=== PATIENT | male | born 1955 | race Caucasian/White ===

== ENCOUNTER 2019-11-08 20:22 | Inpatient (IN) | payer OTHER, SELFPAY ==
[~2019-11-08] VITALS: Ht 167.6 cm; Wt 104.8 kg
[2019-11-08] MEDS: NACL 0.9% 1,000 ML IV SCH (00:50)
[2019-11-08 20:32] VITALS: BP 132/82
--- NOTE | 2019-11-08 21:03 | NUR ---
BIBA TO ER BED 2
--- NOTE | 2019-11-08 21:05 | NUR ---
ERMD AT BEDSIDE.
--- NOTE | 2019-11-08 21:10 | NUR ---
PT BIBA FROM [facility] FOR C/O FEVER OF 102.9 AT FACILITY. PT COVID POSITIVE PER REPORT FROM EMS. COVID PRECAUTIONS IN PLACE. PT RESPIRATIONS ARE EVEN AND UNLABORED. PT NOTED WITH NON-PRODUCTIVE COUGH. LUNG SOUNDS CLEAR BILAT A/P. PT SKIN IS WARM AND DRY TO TOUCH. PT DENIES PAIN. PT BULGARIAN SPEAKING AND ABLE TO RESPONDS TO YES OR NO QUESTIONS. PT ON CATTLE TESTER. VSS. BED LOCKED AND IN LOWEST POSITION. ALLERGIES: SANCHEZ FLAVORED [place] MEDHX: HTN, DM TYPE II, HYPERLIPIDEMIA, CVA WITH R SIDED WEAKNESS.
--- NOTE | 2019-11-08 21:15 | NUR ---
IV PLACED IN L FOREARM 20 G. BLOOD CULTURES AND LABS COLLECTED. GIVEN TO [employer].
--- NOTE | 2019-11-08 21:18 | NUR ---
RT AT BEDSIDE COLLECTING ABG.
--- NOTE | 2019-11-08 21:25 | NUR ---
ACCUCHDEEPIKA DYE. SUNIL @ 202. ERMD MADE AWARE.
--- NOTE | 2019-11-08 21:30 | NUR ---
UA COLLECTED VIA STRAIGHT CATH. UA SENT TO LAB.
--- NOTE | 2019-11-08 21:40 | NUR ---
EKG PERFORMED AT BEDSIDE.
[2019-11-08 21:59] LABS: BASOPHILS % (AUTO) 0.1 % (0.0-2.0); HEMATOCRIT 46.3 % (36-52); HEMOGLOBIN 15.4 g/dL (12.0-18.0); LYMPHOCYTES # (AUTO) 0.5 K/uL (2.0-11.5); LYMPHOCYTES % (AUTO) 10.9 % (20.5-51.1); MEAN CORPUSCULAR HEMOGLOBIN 29 pg (27-31); MEAN CORPUSCULAR HGB CONC 33 g/dL (33-37); MEAN CORPUSCULAR VOLUME 87.3 fL (80-94); MONOCYTES # (AUTO) 0.3 K/uL (0.8-1.0); MONOCYTES % (AUTO) 6.3 % (1.7-9.3); NEUTROPHILS # (AUTO) 3.9 K/uL (1.8-7.7); NEUTROPHILS % (AUTO) 82.7 % (42.2-75.2); PLATELET COUNT (AUTO) 100 K/uL (140-450); RED CELL DISTRIBUTION WIDTH 14.3 % (11.6-13.7); WHITE BLOOD COUNT (AUTO) 4.7 K/uL (4.8-10.8)
[2019-11-08 22:10] LABS: APPEARANCE,URINE CLEAR (CLEAR); BILIRUBIN,URINE NEGATIVE (NEGATIVE); BLOOD, URINE 1+ (NEGATIVE); COLOR,URINE YELLOW (YELLOW); LEUKOCYTE ESTERASE ,URINE NEGATIVE (NEGATIVE); NITRITE, URINE NEGATIVE (NEGATIVE); UGLUCOSE NEGATIVE (NEGATIVE)
[2019-11-08 22:15] LABS: ALBUMIN 3.1 g/dL (3.4-5.0); ANION GAP 13.7 (8-16); CARBON DIOXIDE 27.7 mmol/L (21-32); CREATININE 1.1 mg/dL (0.6-1.3); POTASSIUM 3.4 mmol/L (3.5-5.1); TOTAL BILIRUBIN 0.4 mg/dL (0.0-1.0)
[2019-11-08 22:23] LABS: RBC,URINE 11-20 (MOD) /HPF (0-5); WBC,URINE 0-5 /HPF (0-5)
[2019-11-08 22:28] LABS: LACTATE DEHYDROGENASE 295 U/L (85-227)
[2019-11-08 22:32] LABS: C-REACTIVE PROTEIN QUANT 16.8 mg/dL (0.0-0.9)
[2019-11-08] MEDS ORDERED: HEPARIN PER PHARMACY MC PRN (22:40)
[2019-11-08] MEDS ORDERED: AZITHROMYCIN 500 MG in DEXTROSE 5% 250 ML IV ONE (22:40)
[2019-11-08] MEDS ORDERED: hePARIN / DEXT 5% PREMIX 250 ML IV ONE (22:40)
[2019-11-08] MEDS ORDERED: AZITHROMYCIN 500 MG INJ VIAL IV ONE (22:59)
[2019-11-08] MEDS ORDERED: cefTRIAXone 1,000 MG VIAL ONE (23:00)
[2019-11-08 23:03] LABS: PROTHROMBIN TIME 10.4 secs (10.8-13.4)
[2019-11-08 23:14] LABS: FIBRINOGEN 334 mg/dL (200-400)
[2019-11-08] MEDS ORDERED: hePARIN / DEXT 5% PREMIX 250 ML IV SCH (23:20)
[2019-11-08] MEDS ORDERED: LORazepam 2 MG/ML VIAL IM/IVP PRN (23:25)
[2019-11-08] MEDS ORDERED: HYDROcodone/APAP 5/325 MG 1 TAB TAB PO PRN (23:25)
[2019-11-08] MEDS ORDERED: DOCUSATE SODIUM 100 MG GELCAP PO PRN (23:25)
[2019-11-08] MEDS ORDERED: ZOLPIDEM 5 MG TAB PO PRN (23:25)
[2019-11-08] MEDS ORDERED: ONDANSETRON 4 MG/2 ML VIAL IM/IVP PRN (23:25)
[2019-11-08] MEDS ORDERED: MORPHINE SULFATE 2 MG/ML SYR IVP PRN (23:25)
[2019-11-08] MEDS ORDERED: ACETAMINOPHEN 325 MG TAB PO PRN (23:25)
--- NOTE | 2019-11-08 23:29 | NUR ---
PT TEMP 98.7 ORAL. PT CONTINUES ON CARDIAC MONTIOR. PT REQUESTED A BLANKET. BLANKED PROVIDED FOR COMFORT MEASURES. PT DENIES PAIN AT THIS TIME. BED LOCKED AND IN LOWEST POSITION.
[2019-11-08] MEDS ORDERED: ALBUTEROL HFA MDI 90 MCG/ACTUATION 8 GM INH PRN (23:30)
[2019-11-08] MEDS ORDERED: DEXAMETHASONE 4 MG/ML VIAL PO SCH (23:30)
[2019-11-08 23:57] LABS: BARBITURATE, URINE NEGATIVE ng/ml (NEG <=200); BENZODIAZEPINE, URINE NEGATIVE ng/mL (NEG <=200); CANNABINOID, URINE NEGATIVE ng/mL (NEG <=50); COCAINE, URINE NEGATIVE ng/mL (NEG <=300); OPIATE, URINE NEGATIVE ng/mL (NEG <=2000); PHENCYCLIDINE SCREEN,URINE NEGATIVE ng/mL (NEG <=25)
[2019-11-08 23:58] LABS: CHOL/HDL RATIO 4.1 (1-4.5); FREE T4 (FREE THYROXINE) 1.2 ng/dL (0.76-1.46); MAGNESIUM 1.4 mg/dL (1.8-2.4); PHOSPHORUS 2.5 mg/dL (2.5-4.9); THYROID STIMULATING HORMONE 0.71 uIU/mL (0.34-3.74)
--- NOTE | 2019-11-09 | NUR ---
IV removed, catheter intact and site benign. Applied folded 4x4 gauze and tape to stop bleeding.
--- NOTE | 2019-11-09 | NUR ---
PT HAD 24G IN R HAND PRIOR TO ARRIVAL AND PLACED BY FACILTY. CHECK IF IV WAS PATENT. IV SITE NOT PATENT.
--- NOTE | 2019-11-09 00:05 | NUR ---
AZITHROMYCIN 500MG IN D5% 250 ML @ 250ML/HR. IN R HAND.
--- NOTE | 2019-11-09 00:05 | NUR ---
NEW IV PLACED IN R HAND 22G. IV SITE PATENT. BLOOD RETURN NOTED.
--- NOTE | 2019-11-09 00:26 | NUR ---
PT RESTING IN BED EYES CLOSED. PT ABLE TO RESPOND TO VERBAL STIMULI. PT BED LOCKED AND IN LOWEST POSTION. PT REMAINS ON FORK LIFT MECHANIC. PT DENIES PAIN AT THIS TIME. BED LOCKED AND IN LOWEST POSITION. PT VSS AT THIS TIME. SIDERAIL UP X 1.
--- NOTE | 2019-11-09 01:00 | NUR ---
NS 0.9% 1L RUNNING @ 100ML/HR IN R HAND. PT RESTING IN BED EYES OPEN. PT RESPONSIVE TO VERBAL STIMULI. PT NON VERBAL BUT ABLE TO RESPOND TO YES AND NO QUESTIONS. PT CONTINUES ON AUTO DEALER. PT VSS. BED LOCKED AND IN LOWEST POSTION.
--- NOTE | 2019-11-09 02:00 | NUR ---
PT SKIN REMAINS CLEAN AND DRY TO PERNIEAL CARE NEEDED AT THIS TIME. PT ABLE TO REPOSION SELF IN BED. PILLOWS GIVEN FOR COMFORT. PT REMAINS ON DATA OPERATIONS DIRECTOR. VSS. AFEBILE.
--- NOTE | 2019-11-09 02:15 | NUR ---
Patient will be admitted to care of . Admited to TELE. Will go to room 119B. Belongings list completed. Report to TAY BEAUCHAMP.
--- NOTE | 2019-11-09 02:15 | NUR ---
ADMITTED 64 MALE FROM [facility]. PATIENT IS NON VERBAL. ANSWERS BY NODDING TO YES/NO QUESTION. ON 5L O2 VIA NC SATURATION OF 95%. IV SITE AT LFA 20 G, AND RH 22G, INTACT AND PATENT. E.R. NURSE VERITO, INFUSED THE HEPARIN DRIP AT 9.7 ML/HR. TO LFA IV SITE AND NS AT 100CC/HR TO RH IV SITE, NO A/R NOTED, PATIENT TOLERATED WELL. MRSA AND COVID SWAB DONE, V/S TAKEN. DROPLET ISOLATION IN PLACE. FALL RISK PROTOCOL IN PLACE. TELE MONITOR ATTACHED. FLACC-0. CALL LIGHT WITHIN REACH. WILL CONTINUE TO MONITOR.
[2019-11-09] MEDS ORDERED: FLUO10CA21 PO (03:17)
[2019-11-09] MEDS ORDERED: METF500T PO (03:17)
[2019-11-09] MEDS ORDERED: METO25TA PO (03:17)
[2019-11-09] MEDS ORDERED: GABA100C PO (03:17)
[2019-11-09] MEDS ORDERED: [UNRECOGNIZED DRUG - CODE] PO (03:17)
[2019-11-09] MEDS ORDERED: DOCU-299 PO (03:17)
[2019-11-09] MEDS ORDERED: ATOR20TA40 PO (03:17)
[2019-11-09] MEDS ORDERED: CLOP75TA26 PO (03:17)
[2019-11-09] MEDS ORDERED: MAG SULF 2000 MG/WATER PREMIX 50 ML IV SCH (03:30)
[2019-11-09] MEDS ORDERED: POTASSIUM CHLORIDE 10 MEQ TABER PO SCH ×2 (03:30→10:30)
[2019-11-09 04:00] VITALS: BP 105/65
[2019-11-09] MEDS ORDERED: [UNRECOGNIZED DRUG - CODE] PO (04:23)
[2019-11-09] MEDS ORDERED: POTA20TE92 PO (04:28)
[2019-11-09] MEDS ORDERED: MULT-2253 PO (04:31)
--- NOTE | 2019-11-09 06:46 | NUR ---
MAGNESIUM IV GIVEN ORDERED ONCE FOR LOW MAGNESIUM. NO A/R NOTED, TOLERATED WELL.
--- NOTE | 2019-11-09 06:57 | NUR ---
PATIENT HAS BEEN SCREENED AND CATEGORIZED HIGH NUTRITION RISK. PATIENT WILL BE SEEN WITHIN 1-2 DAYS OF ADMISSION. 11/09/19 11/10/[address]
--- NOTE | 2019-11-09 07:00 | NUR ---
RECEIVED REPORT FROM CONTRACT ADMINISTRATION COORDINATOR NURSE. PATIENT IS CURRENTLY SLEEPING IN BED WITH NO SIGNS OF DISTRESS AT THIS TIME. RESPIRATIONS ARE EVEN AND UNLABORED ON 5L NASAL CANNULA WITH NO DIFFICULTIES BREATHING AND O2 SATURATIONS ARE CURRENTLY AT 92%. SKIN IS INTACT WITH IV PATENT ASYMPTOMATIC AND INFUSING PER ORDERS. BED IS IN LOW SEMI-FOWLERS POSITION WITH CALL LIGHT WITHIN REACH AND SAFETY MEASURES IN PLACE. WILL CONTINUE TO MONITOR PLAN OF CARE.
[2019-11-09 07:05] LABS: BASOPHILS % (AUTO) 0.9 % (0.0-2.0); EOSINOPHILS % (AUTO) 0.1 % (0.0-4.0); HEMATOCRIT 40.1 % (36-52); HEMOGLOBIN 13.5 g/dL (12.0-18.0); LYMPHOCYTES # (AUTO) 0.4 K/uL (2.0-11.5); LYMPHOCYTES % (AUTO) 11.3 % (20.5-51.1); MEAN CORPUSCULAR HEMOGLOBIN 29 pg (27-31); MEAN CORPUSCULAR HGB CONC 34 g/dL (33-37); MEAN CORPUSCULAR VOLUME 86.4 fL (80-94); MONOCYTES # (AUTO) 0.3 K/uL (0.8-1.0); MONOCYTES % (AUTO) 7.3 % (1.7-9.3); NEUTROPHILS # (AUTO) 3.1 K/uL (1.8-7.7); NEUTROPHILS % (AUTO) 80.4 % (42.2-75.2); PLATELET COUNT (AUTO) 94 K/uL (140-450); RED BLOOD CELL COUNT(AUTO) 4.64 MIL/uL (4.20-6.10); RED CELL DISTRIBUTION WIDTH 14.6 % (11.6-13.7); WHITE BLOOD COUNT (AUTO) 3.9 K/uL (4.8-10.8)
[2019-11-09 07:29] LABS: ALBUMIN 2.6 g/dL (3.4-5.0); ANION GAP 15.2 (8-16); CARBON DIOXIDE 23.9 mmol/L (21-32); CREATININE 1.3 mg/dL (0.6-1.3); MAGNESIUM 1.4 mg/dL (1.8-2.4); PHOSPHORUS 2.7 mg/dL (2.5-4.9); POTASSIUM 3.1 mmol/L (3.5-5.1); TOTAL BILIRUBIN 0.3 mg/dL (0.0-1.0)
--- NOTE | 2019-11-09 07:40 | NUR ---
PATIENT IS IN STABLE CONDITION, AFEBRILE THE WHOLE SHIFT, NO DISTRESS NOTED. ENDORSED TO AM SHIFT RN FOR CONTINUITY OF CARE.
[2019-11-09 08:00] VITALS: BP 103/70
[2019-11-09] MEDS ORDERED: ENOXAPARIN 40 MG/0.4 ML SYR SUBQ SCH (09:00)
[2019-11-09] MEDS ORDERED: CLOPIDOGREL 75 MG TAB PO SCH (09:00)
[2019-11-09] MEDS ORDERED: NON-FORMULARY ITEM (Lisinopril/Hydrochlorothiazide (Lisinopril-Hctz 20-25 mg Tab) 1 TAB) PO SCH (09:00)
[2019-11-09] MEDS ORDERED: CRUSHER, PILL MC ONE (09:14)
[2019-11-09] MEDS: NACL 0.9% 1,000 ML IV SCH ×2 (09:24→21:36)
[2019-11-09] MEDS: DEXAMETHASONE 4 MG TAB PO SCH (09:28)
[2019-11-09] MEDS: AZITHROMYCIN 250 MG TAB PO SCH (09:28)
[2019-11-09] MEDS: FLUoxetine 10 MG CAP PO SCH (09:28)
[2019-11-09] MEDS: ZINC SULF 220 MG CAP PO SCH (09:29)
[2019-11-09] MEDS: DOCUSATE SODIUM 100 MG GELCAP PO SCH (09:29)
[2019-11-09] MEDS: hydroCHLOROthiazide 25 MG TAB PO SCH ×2 (09:30→21:36)
[2019-11-09] MEDS: VITAMIN D 400 IU TAB PO SCH (09:30)
[2019-11-09] MEDS: ASCORBIC ACID 500 MG TAB PO SCH (09:30)
[2019-11-09] MEDS: GABAPENTIN 100 MG CAP PO PRN (09:30)
[2019-11-09] MEDS: METOPROLOL 25 MG TAB PO SCH ×2 (09:31→21:00)
[2019-11-09] MEDS: metFORMIN 500 MG TAB PO SCH ×2 (09:32→18:08)
[2019-11-09] MEDS: lisinopriL 20 MG TAB PO SCH ×2 (09:55→21:36)
--- NOTE | 2019-11-09 09:56 | NUR ---
ADMINISTERED MEDICATIONS PER ORDER AND TOLERATED WELL. PATIENT WAS VERY THIRSTY. PATIENT DOES NOT COMPLAIN OF ANY PAIN AT THIS TIME. SAFETY MEASURES IN PLACE AND WILL CONTINUE TO MONITOR PLAN OF CARE
[2019-11-09] MEDS ORDERED: POTASSIUM CHLORIDE 10 MEQ TABER PO PRN (10:10)
[2019-11-09] MEDS ORDERED: DOCUSATE SODIUM 100 MG GELCAP PO PRN (10:10)
[2019-11-09] MEDS ORDERED: ACETAMINOPHEN 325 MG TAB PO PRN (10:10)
[2019-11-09] MEDS ORDERED: LORazepam 2 MG/ML VIAL IVP PRN (10:10)
[2019-11-09] MEDS ORDERED: ZOLPIDEM 10 MG TAB PO PRN (10:10)
[2019-11-09] MEDS ORDERED: ONDANSETRON 4 MG/2 ML VIAL IVP PRN (10:10)
[2019-11-09] MEDS ORDERED: MORPHINE SULFATE 2 MG/ML SYR IVP PRN (10:10)
[2019-11-09] MEDS ORDERED: MAG SULF 2000 MG/WATER PREMIX 50 ML IV PRN (10:10)
--- NOTE | 2019-11-09 10:55 | NUR ---
PATIENT IS CURRENTLY SITTING IN BED WITH NO SIGNS OF DISTRESS. TOWBOAT OPERATOR IS GOING TO CHANGE PATIENT. SAFETY MEASURES IN PLACE AND WILL CONTINUE TO MONITOR.
[2019-11-09] MEDS ORDERED: MAG SULF 2000 MG/WATER PREMIX 100 ML IV SCH (11:00)
[2019-11-09 12:00] VITALS: BP 107/71
--- NOTE | 2019-11-09 12:13 | NUR ---
ADMINISTERED MEDICATIONS PER ORDER AND TOLERATED WELL. PATIENT IS CURRENTLY SLEEPING IN BED WITH NO SIGNS OF DISTRESS AT THIS TIME. SAFETY MEASURES IN PLACE AND WILL CONTINUE TO MONITOR.
--- NOTE | 2019-11-09 13:10 | NUR ---
DISCONTINUED HEPARIN DRIP PER DR. CHEUNG ORDERS. SAFETY MEASURES IN PLACE AND WILL CONTINUE TO MONITOR.
[2019-11-09] MEDS ORDERED: POTASSIUM CHLORIDE 20% 40 MEQ/15 ML UDC GT SCH (14:00)
--- NOTE | 2019-11-09 14:50 | NUR ---
ADMINISTERED MEDICATIONS PER ORDER AND TOLERATED WELL. PATIENT IS CURRENTLY AWAKE WATCHING TV WITH NO SIGNS OF DISTRESS. SAFETY MEASURES IN PLACE AND WILL CONTINUE TO MONITOR PLAN OF CARE.
[2019-11-09 16:00] VITALS: BP 95/61
--- NOTE | 2019-11-09 16:30 | NUR ---
ULTRA SOUND IS IN PATIENTS ROOM COMPLETING AN ABDOMINAL ULTRASOUND. PATIENT IS TOLERATING WELL. SAFETY MEASURES IN PLACE AND WILL CONTINUE TO MONITOR.
--- NOTE | 2019-11-09 17:37 | NUR ---
PATIENTS IV CAME OUT IN THE LEFT WRIST. PATIENTS IV IN THE RIGHT HAND IS STILL PATENT. SAFETY MEASURES IN PLACE AND WILL CONTINUE TO MONITOR.
--- NOTE | 2019-11-09 18:17 | NUR ---
ADMINISTERED MEDICATIONS PER ORDER AND TOLERATED WELL. PATIENT IS ABOUT TO EAT DINNER. SAFETY MEASURES IN PLACE AND WILL CONTINUE OT MONITOR.
--- NOTE | 2019-11-09 18:51 | NUR ---
PATIENT IS CURRENTLY LAYING BED WITH NO SIGNS OF DISTRESS AT THIS TIME. PATIENT FINISHED EATING DINNER. SAFETY MEASURES IN PACE AND [facility]UITY OF CARE.
[2019-11-09 20:00] VITALS: BP 105/72
--- NOTE | 2019-11-09 20:00 | NUR ---
RECEIVED PATIENT AWAKE IN BED. PT NON VERBAL BUT ABLE TO MAKE HEAD MOVEMENTS. RIGHT SIDED WEAKNESS NOTED. BLE DISCOLORATION NOTED. PT ON 3.5L O2 VIA NC. NO SOB OR S/S DISTRESS NOTED AT THIS TIME. BED LOWERED WITH CALL LIGHT WITHIN REACH
[2019-11-09] MEDS ORDERED: remdesivir COMMUNICATION ORDER 1 EA MISC MC PRN (20:40)
[2019-11-09] MEDS ORDERED: ENOXAPARIN 120 MG/0.8 ML SYR SUBQ SCH (20:45)
[2019-11-09] MEDS: ATORVASTATIN 20 MG TAB PO SCH (21:35)
--- NOTE | 2019-11-09 21:36 | NUR ---
ADMINISTERED SCHEDULED MEDS WITH APPLESAUCE. PT TOLERATED WELL
--- NOTE | 2019-11-09 23:30 | NUR ---
O2 TITRATED DOWN TO 2.5L. O2 SAT 93%. WILL CONTINUE TO MONITOR
[2019-11-10] VITALS: BP 110/74
--- NOTE | 2019-11-10 01:34 | NUR ---
PT ASLEEP IN BED. NO S/S OF DISTRESS NOTED
[2019-11-10 04:12] VITALS: BP 124/92
[2019-11-10] MEDS: NACL 0.9% 1,000 ML IV SCH ×3 (05:24→21:55)
[2019-11-10 08:19] LABS: BASOPHILS % (AUTO) 0.4 % (0.0-2.0); HEMATOCRIT 39.7 % (36-52); HEMOGLOBIN 13.5 g/dL (12.0-18.0); LYMPHOCYTES # (AUTO) 0.5 K/uL (2.0-11.5); LYMPHOCYTES % (AUTO) 11.6 % (20.5-51.1); MEAN CORPUSCULAR HEMOGLOBIN 29 pg (27-31); MEAN CORPUSCULAR HGB CONC 34 g/dL (33-37); MEAN CORPUSCULAR VOLUME 86.1 fL (80-94); MONOCYTES # (AUTO) 0.4 K/uL (0.8-1.0); NEUTROPHILS # (AUTO) 3.7 K/uL (1.8-7.7); PLATELET COUNT (AUTO) 100 K/uL (140-450); RED BLOOD CELL COUNT(AUTO) 4.61 MIL/uL (4.20-6.10); RED CELL DISTRIBUTION WIDTH 14.5 % (11.6-13.7); WHITE BLOOD COUNT (AUTO) 4.7 K/uL (4.8-10.8)
[2019-11-10 08:24] LABS: ANION GAP 15.3 (8-16); CARBON DIOXIDE 23.2 mmol/L (21-32); CREATININE 1.2 mg/dL (0.6-1.3); POTASSIUM 3.5 mmol/L (3.5-5.1)
[2019-11-10 08:30] VITALS: BP 125/77
[2019-11-10] MEDS: metFORMIN 500 MG TAB PO SCH ×2 (09:00→17:53)
[2019-11-10] MEDS ORDERED: ENOXAPARIN 120 MG/0.8 ML SYR SUBQ SCH (09:30)
[2019-11-10] MEDS: VITAMIN D 400 IU TAB PO SCH (09:35)
[2019-11-10] MEDS: AZITHROMYCIN 250 MG TAB PO SCH (09:36)
[2019-11-10] MEDS: DOCUSATE SODIUM 100 MG GELCAP PO SCH (09:36)
[2019-11-10] MEDS: lisinopriL 20 MG TAB PO SCH ×2 (09:36→21:52)
[2019-11-10] MEDS: ZINC SULF 220 MG CAP PO SCH (09:36)
[2019-11-10] MEDS: ASCORBIC ACID 500 MG TAB PO SCH (09:36)
[2019-11-10] MEDS: hydroCHLOROthiazide 25 MG TAB PO SCH ×2 (09:37→21:52)
[2019-11-10] MEDS: FLUoxetine 10 MG CAP PO SCH (09:37)
[2019-11-10] MEDS: METOPROLOL 25 MG TAB PO SCH ×2 (09:37→21:42)
[2019-11-10] MEDS: DEXAMETHASONE 4 MG TAB PO SCH (09:37)
[2019-11-10 12:23] VITALS: BP 114/77
--- NOTE | 2019-11-10 12:26 | NUR ---
DIGITAL SALES REPRESENTATIVE NOTE: Patient's Orientation Place Information Provided By SURI Aaron [facility] Comments SW WAS UNABLE TO MEET PATIENT AT BEDSIDE DUE TO MEDICAL CONDITION. Insole Bottom Filler, Realtionship and Phone Number ZEYNEP TOUSSAINT [phone] [facility] Power of Head Athletic Trainer/Strength Coach No Does Patient Have a POLST No Identifying Problems No Social Work Triggers Is A Social Work Consult Needed No Mandate Report Filed No Explanation Of Identifying Problems PATIENT IS A 64-YEAR-OLD MALE ADMITTED FOR COVID R/O. PATIENT HAS PMHX OF COVID, DLD, DM, MDD, AND NEUROPATHY. Admitted From Assisted Facility Assisted Facility [facility] - [phone] Pre-Admission Level Of Functioning Status Total Care Prior Resources/Services Used In Last 12 Months SNF [facility] Care Prior DME Wheelchair Patient Had Caregiver No Home Support No Caregiver Issues Financial Issues No Known Financial Issue Referral To The Financial Counselor Needed No Factors/Needs SNF/NH Placement Explanation And Or Other Factors Affecting/Possible DC Needs PATIENT IS LONG-TERM AND ON A BED HOLD. Discharge Plan Comments TENTATIVE DISCHARGE PLAN IS FOR PATIENT TO RETURN TO [facility]. DC Plan Status Initiated
[2019-11-10] MEDS ORDERED: CLINICAL MONITORING MC PRN (12:50)
[2019-11-10] MEDS ORDERED: DEXTROSE 50% 50 ML SYR IVP PRN (12:55)
[2019-11-10] MEDS ORDERED: remdesivir 200 mg in NACL 0.9% 100 ML IV SCH (14:00)
--- NOTE | 2019-11-10 15:01 | NUR ---
RECEIVED PATIENT REPORT AT 1225 PATIENT IS AWAKE AND ALERT, HE IS APHASIC BUT IS ABLE TO FOLLOW COMMANDS AND CAN NOD AND SHAKE HEAD FOR "NO". HE HAS RIGHT SIDED WEAKNESS. PATIENT IS ON 2.5 LPM NC AND SATURATING AT 93%. DENIES PAIN. IVF'S INFUSING NS AT 100ML/HR. IV SITE IS PATENT AND INTACT. NOTED BREAKFAST TRAY AT BEDSIDE WITH ONLY A COUPLE OF BITES EATEN. HE IS RESTING COMFORTABLY IN BED. THE BED IS LOWERED AND BED IS LOCKED WITH CALL LIGHT WITHIN REACH. AT 1400 GAVE PATIENT'S SCHEDULED MEDICATIONS. PATIENT'S NEEDS MET AT THIS TIME.
--- NOTE | 2019-11-10 15:21 | NUR ---
AT 1406 RECEIVED LAB CRITICAL VALUE FOR COVID POSITIVE. 1420 DR JHA MADE AWARE OF LAB VALUE. NO NEW ORDERS.
--- NOTE | 2019-11-10 16:05 | NUR ---
11/10/2019 RD INITIAL ASSESSMENT COMPLETED PLEASE REFER TO NUTRITION ASSESSMENT UNDER CARE ACTIVITY FOR ESTIMATED NUTRITIONAL NEEDS. RD RECOMMENDATIONS: 1. CONTINUE 60 GM CCHO, CARDIAC PUREE DIET TOLERATED. 2. WILL ADD GLUCERNA BID TO OPTIMIZE NUTRITION INTAKE. 3. CONSIDER SWALLOW EVALATION TO ASSESS IF PT IS ABLE TO UPGRADE DIET TEXTURE. 4. ENCOURAGE INCREASED PO INTAKE. 5. RD WILL F/U 2-3 DAYS; HIGH RISK. EBER BAUM, RD
[2019-11-10] MEDS: BLOOD GLUCOSE MONITORING 1 DEV DEV FS SCH ×2 (16:19→21:41)
[2019-11-10 16:48] VITALS: BP 113/76
--- NOTE | 2019-11-10 17:58 | NUR ---
GAVE ORDERED MEDICATIONS, WHEN ASKED IF PATIENT WILL EAT HIS DINNER HE SHOOK HIS HEAD "NO". PATIENT ENCOURAGED TO EAT HIS DINNER HOWEVER PATIENT REFUSED. WILL NO ADMINISTER HUMALOG COVERAGE FOR BLOOD SUGAR OF 194.
--- NOTE | 2019-11-10 19:24 | NUR ---
PATIENT IS RESTING COMFORTABLY IN BED AND SHOWS NO S/S OF ACUTE DISTRESS NOTED ON 3LPM NC. PATIENT ENDORSED TO ERIC BEAUCHAMP BEAD PREPARER IN STABLE CONDITION.
--- NOTE | 2019-11-10 19:25 | NUR ---
REPORT RECEIVED FROM AM NURSE AT BEDSIDE. PT IN STABLE CONDITION. AAOX4. NO COMPLAINTS OF PAIN. NO SOB ON 3L O2 VIA NC. AFEBRILE. PT IS ON BEDREST. PT IS ON DROPLET PRECAUTION FOR COVID+. IV SITE R HAND 22G RUNNING NS@100ML/HR PATENT AND INTACT. SKIN WARM, DRY, AND INTACT WITH NO OPEN WOUNDS. BED LOCKED IN LOW POSITION. CALL ALCANTAR WITHIN REACH. SAFETY PRECAUTION IN PLACE. ALL NEEDS MET AT THIS TIME.
[2019-11-10 20:00] VITALS: BP 124/77
--- NOTE | 2019-11-10 20:10 | NUR ---
PT ON 3LNC SAT 93% HR66 NO DISTRESS NOTED AT THIS TIME PT DENIES SOB
[2019-11-10] MEDS: ATORVASTATIN 20 MG TAB PO SCH (21:41)
--- NOTE | 2019-11-10 21:52 | NUR ---
LIPITOR, LOPRESSOR, ORETIC, AND ZESTRIL GIVEN PO. LOVENOX GIVEN SUBQ. BS 204. 4 UNITS OF HUMALOG GIVEN.
[2019-11-10] MEDS: INSULIN LISPRO SLIDING SCALE 100 UNITS/ML VIAL SUBQ PRN (21:55)
[2019-11-10] MEDS: ENOXAPARIN 120 MG/0.8 ML SYR SUBQ SCH (21:55)
--- NOTE | 2019-11-10 23:45 | NUR ---
PT SLEEPING COMFORTABLY BUT AROUSABLE. NO S/S OF DISTRESS NOTED. WILL CONTINUE TO MONITOR.
[2019-11-11] VITALS: BP 120/77
--- NOTE | 2019-11-11 02:15 | NUR ---
PT SLEEPING COMFORTABLY BUT AROUSABLE. NO S/S OF DISTRESS NOTED. RESPIRATIONS EVEN, UNLABORED, AND WNL. WILL CONTINUE TO MONITOR.
[2019-11-11 04:00] VITALS: BP 118/72
--- NOTE | 2019-11-11 04:25 | NUR ---
PT SLEEPING COMFORTABLY BUT AROUSABLE. NO S/S OF DISTRESS NOTED. NO COMPLAINTS OF PAIN. NO SOB. AFEBRILE. WILL CONTINUE TO MONITOR.
[2019-11-11] MEDS: BLOOD GLUCOSE MONITORING 1 DEV DEV FS SCH ×4 (05:34→21:30)
--- NOTE | 2019-11-11 05:34 | NUR ---
BS 162. PT HAS A DECREASED APPETITE. WILL NOT BE GIVING INSULIN.
--- NOTE | 2019-11-11 08:30 | NUR ---
RECEIVED REPORT FROM QUALITY ASSURANCE COORDINATOR, RN
--- NOTE | 2019-11-11 08:30 | NUR ---
PT A &O X 0. PT NONVERBAL, NODS HEAD IN RESPONS TO QUESTIONS. PT POOR HISTORIAN. RR EVEN AND UNLABORED. PT ON 2.5 L NC. L UPPER LUNG SOUNDS DIMINISHED. ABD, LARGE, DISTENDED, ACTIVE BS X 4 QUADRANTS. PULSES 2+. DENIES SOB OR PAIN. B PEDAL EDEMA, 2+.
[2019-11-11 08:35] LABS: BASOPHILS % (AUTO) 0.2 % (0.0-2.0); HEMATOCRIT 39.9 % (36-52); HEMOGLOBIN 13.7 g/dL (12.0-18.0); LYMPHOCYTES # (AUTO) 0.5 K/uL (2.0-11.5); LYMPHOCYTES % (AUTO) 5.4 % (20.5-51.1); MEAN CORPUSCULAR HEMOGLOBIN 29 pg (27-31); MEAN CORPUSCULAR HGB CONC 34 g/dL (33-37); MEAN CORPUSCULAR VOLUME 85.2 fL (80-94); MONOCYTES # (AUTO) 0.8 K/uL (0.8-1.0); MONOCYTES % (AUTO) 9.3 % (1.7-9.3); NEUTROPHILS # (AUTO) 7.4 K/uL (1.8-7.7); NEUTROPHILS % (AUTO) 85.1 % (42.2-75.2); PLATELET COUNT (AUTO) 124 K/uL (140-450); RED BLOOD CELL COUNT(AUTO) 4.68 MIL/uL (4.20-6.10); RED CELL DISTRIBUTION WIDTH 14.3 % (11.6-13.7); WHITE BLOOD COUNT (AUTO) 8.7 K/uL (4.8-10.8)
[2019-11-11] MEDS: METOPROLOL 25 MG TAB PO SCH ×2 (09:52→21:00)
[2019-11-11] MEDS: DOCUSATE SODIUM 100 MG GELCAP PO SCH (09:52)
--- NOTE | 2019-11-11 09:52 | NUR ---
AM RX ADMINISTED, PT TOLERATED WELL WITH APPLE SAUCE.
[2019-11-11] MEDS: VITAMIN D 400 IU TAB PO SCH (09:53)
[2019-11-11] MEDS: DEXAMETHASONE 4 MG TAB PO SCH (09:53)
[2019-11-11] MEDS: FLUoxetine 10 MG CAP PO SCH (09:54)
[2019-11-11] MEDS: ASCORBIC ACID 500 MG TAB PO SCH (09:54)
[2019-11-11] MEDS: hydroCHLOROthiazide 25 MG TAB PO SCH ×2 (09:55→21:41)
[2019-11-11] MEDS: lisinopriL 20 MG TAB PO SCH ×2 (09:56→21:00)
[2019-11-11] MEDS: ZINC SULF 220 MG CAP PO SCH (09:56)
[2019-11-11] MEDS: ENOXAPARIN 120 MG/0.8 ML SYR SUBQ SCH ×2 (10:01→21:40)
[2019-11-11] MEDS: metFORMIN 500 MG TAB PO SCH ×2 (10:07→17:21)
--- NOTE | 2019-11-11 10:10 | NUR ---
PT DID NOT EAT ANY SOLID FOOD FROM BREAKFAST TRAY, PT DRANK 80% OF NUTRITIONAL SUPPLEMENT PO.
--- NOTE | 2019-11-11 11:22 | NUR ---
NS STARTED @ 100ML/HR.
--- NOTE | 2019-11-11 11:22 | NUR ---
ACCANGELO 234.
[2019-11-11] MEDS: NACL 0.9% 1,000 ML IV SCH ×2 (11:23→22:03)
--- NOTE | 2019-11-11 11:40 | NUR ---
CRANBERRY FARM SUPERVISOR AT BEDSIDE, CHANGING PT POSITION, PROVIDING PERINEAL CARE.
[2019-11-11 11:49] LABS: ANION GAP 14.2 (8-16); CARBON DIOXIDE 24.4 mmol/L (21-32); CREATININE 0.9 mg/dL (0.6-1.3); POTASSIUM 3.6 mmol/L (3.5-5.1)
[2019-11-11 12:26] VITALS: BP 129/77
[2019-11-11 12:27] LABS: ALBUMIN 2.6 g/dL (3.4-5.0); BILIRUBIN,DIRECT 0.1 mg/dL (0.0-0.3); TOTAL BILIRUBIN 0.4 mg/dL (0.0-1.0)
[2019-11-11] MEDS: remdesivir 100 mg in NACL 0.9% 100 ML IV SCH (15:21)
--- NOTE | 2019-11-11 15:22 | NUR ---
REMDESIVIR INFUSION STARTED
--- NOTE | 2019-11-11 15:22 | NUR ---
PT SITTING UP IN BED DRINKING NUTRITIONAL SHAKE, RR EVEN
--- NOTE | 2019-11-11 15:30 | NUR ---
PT DID NOT EAT LUNCH TRAY, PT HAS DECREASED APPETITE AND COMPLETED NUTRITIONAL SUPPLEMENT AND VANILLA SHAKE.
[2019-11-11 16:00] VITALS: BP 123/77
[2019-11-11] MEDS: GABAPENTIN 100 MG CAP PO PRN (17:21)
--- NOTE | 2019-11-11 17:21 | NUR ---
ACCUCHECK 294, PT GIVEN BS MEDICATION
[2019-11-11] MEDS: INSULIN LISPRO SLIDING SCALE 100 UNITS/ML VIAL SUBQ PRN ×2 (17:59→21:30)
--- NOTE | 2019-11-11 17:59 | NUR ---
PT COVERED WITH 6 UNITS OF INSULIN HUMALOG FOR BLOOD GLUCOSE 294
--- NOTE | 2019-11-11 18:00 | NUR ---
PT RESTING IN BED, RR EVEN, PT DENIES ANY PAIN, ALL NEEDS MET AT THIS TIME WILL CONTINUE TO MONITOR.
--- NOTE | 2019-11-11 19:20 | NUR ---
PT ENDORSED TO QUYNH LOW FOR CONTINUITY OF CARE.
--- NOTE | 2019-11-11 19:21 | NUR ---
RECEIVED CONTINUITY OF CARE FROM AM NURSE. WILL CONTINUE TO MONITOR.
[2019-11-11 20:00] VITALS: BP 114/70
--- NOTE | 2019-11-11 21:35 | NUR ---
MADE AROUND ON PATIENT. PATIENT IS IN STABLE CONDITION. A/OX1, PATIENT IS NONVERBAL BUT EXPRESSES UNDERSTANDING OF DIRECTIONS AND COMMANDS. L UPPER LUNG SOUNDS DIMINISHED. ABD, LARGE, DISTENDED, ACTIVE BS X 4 QUADRANTS. PULSES 2+. DENIES SOB OR PAIN. 02 2L VIA NC NOTED. 22G IV ON R HAND, PATENT AND INTACT. WILL CONTINUE TO MONITOR.L Addendum: 11/11/19 at 6664 by Andrew Dorman RN ROUTINE MEDS GIVEN ORDERED. BLOOD PRESSURE MEDICATION HELD DUE TO DECREASE BP.
[2019-11-11] MEDS: ATORVASTATIN 20 MG TAB PO SCH (21:37)
--- NOTE | 2019-11-11 22:45 | NUR ---
DAUGHTER BARNEY CALLED TO ASK FOR PATIENT'S STATUS. LEROY WAS INFORMED THAT THE PATIENT IS STABLE AND TOLERATED MEDICATION WELL. LEROY ASKED ABOUT THE PATIENT'S CT, WHICH, ACCORDING TO LEROY OCCURRED IN THE ASSISTED. NURSE EXPLAINED THAT THE TROPONIN LEVELS ARE BEING MONITORED. LEROY EXPRESSED GRATITUDE FOR PATIENT CARE. END OF CALL.
[2019-11-12] VITALS: BP 109/65
--- NOTE | 2019-11-12 00:55 | NUR ---
CHECKED ON PATIENT. PATIENT IS SOUND ASLEEP. PATIENT IS IN STABLE CONDITION. WILL CONTINUE TO MONITOR.
--- NOTE | 2019-11-12 03:00 | NUR ---
CHECKED ON PATIENT. PATIENT IS ASLEEP. NO S/S OF DISTRESS NOTED. WILL CONTINUE TO MONITOR.
[2019-11-12 04:00] VITALS: BP 130/74
--- NOTE | 2019-11-12 05:13 | NUR ---
ASSESSED PATIENT. VITALS ARE WITHIN NORMAL LIMITS. NO S/S OF DISTRESS NOTED. WILL CONTINUE TO MONITOR.
[2019-11-12] MEDS: BLOOD GLUCOSE MONITORING 1 DEV DEV FS SCH ×4 (06:23→21:00)
[2019-11-12] MEDS: INSULIN LISPRO SLIDING SCALE 100 UNITS/ML VIAL SUBQ PRN ×4 (06:32→22:41)
[2019-11-12] MEDS: NACL 0.9% 1,000 ML IV SCH ×3 (07:24→22:50)
--- NOTE | 2019-11-12 07:25 | NUR ---
ENDORSED PATIENT CARE TO AM NURSE BERLIN BEAUCHAMP AT BEDSIDE.
--- NOTE | 2019-11-12 07:27 | NUR ---
REPORT GIVEN BY NIGHT NURSE. PATIENT IN STABLE CONDITION. PATIENT IN BED, ASLEEP, EASILY AROUSABLE BY NAME OR TOUCH. RESPIRATIONS EVEN AND UNLABORED. NO S/S OF DISTRESS NOTED. PLANS OF CARE DISCUSSED. IV INTACT AND PATENT TO RIGHT HAND WITH IV NS INFUSING @ 100ML/HR. BED IN LOW POSITION. BED ALARM ON. SAFETY MEASURES IN PLACE. CALL LIGHT WITHIN REACH.
[2019-11-12 08:00] VITALS: BP 127/81
[2019-11-12] MEDS: metFORMIN 500 MG TAB PO SCH ×2 (08:00→17:17)
[2019-11-12 08:38] LABS: BASOPHILS % (AUTO) 0.3 % (0.0-2.0); HEMATOCRIT 39.9 % (36-52); HEMOGLOBIN 13.6 g/dL (12.0-18.0); LYMPHOCYTES # (AUTO) 0.4 K/uL (2.0-11.5); LYMPHOCYTES % (AUTO) 6.1 % (20.5-51.1); MEAN CORPUSCULAR HEMOGLOBIN 29 pg (27-31); MEAN CORPUSCULAR HGB CONC 34 g/dL (33-37); MEAN CORPUSCULAR VOLUME 85.2 fL (80-94); MONOCYTES # (AUTO) 0.7 K/uL (0.8-1.0); MONOCYTES % (AUTO) 11.9 % (1.7-9.3); NEUTROPHILS # (AUTO) 4.8 K/uL (1.8-7.7); NEUTROPHILS % (AUTO) 81.7 % (42.2-75.2); PLATELET COUNT (AUTO) 143 K/uL (140-450); RED BLOOD CELL COUNT(AUTO) 4.69 MIL/uL (4.20-6.10); RED CELL DISTRIBUTION WIDTH 14.5 % (11.6-13.7); WHITE BLOOD COUNT (AUTO) 5.8 K/uL (4.8-10.8)
[2019-11-12 08:45] LABS: ALBUMIN 2.5 g/dL (3.4-5.0); BILIRUBIN,DIRECT 0.1 mg/dL (0.0-0.3); TOTAL BILIRUBIN 0.4 mg/dL (0.0-1.0)
[2019-11-12 08:49] LABS: ANION GAP 13.5 (8-16); CARBON DIOXIDE 23.8 mmol/L (21-32); CREATININE 0.9 mg/dL (0.6-1.3); POTASSIUM 3.3 mmol/L (3.5-5.1)
[2019-11-12] MEDS: FLUoxetine 10 MG CAP PO SCH (09:00)
[2019-11-12] MEDS: DOCUSATE SODIUM 100 MG GELCAP PO SCH (09:27)
[2019-11-12] MEDS: ASCORBIC ACID 500 MG TAB PO SCH (09:27)
[2019-11-12] MEDS: ZINC SULF 220 MG CAP PO SCH (09:29)
[2019-11-12] MEDS: VITAMIN D 400 IU TAB PO SCH (09:29)
[2019-11-12] MEDS: DEXAMETHASONE 4 MG TAB PO SCH (09:29)
--- NOTE | 2019-11-12 09:30 | NUR ---
PATIENT REMAINS STABLE. NO S/S OF DISTRESS NOTED. PATIENT ALERT, AWAKE AND NON VERBAL. CALL LIGHT WITHIN REACH. O2 ON @ 2L NC.
[2019-11-12] MEDS: lisinopriL 20 MG TAB PO SCH ×2 (09:32→21:00)
[2019-11-12] MEDS: METOPROLOL 25 MG TAB PO SCH ×2 (09:33→21:00)
[2019-11-12] MEDS: hydroCHLOROthiazide 25 MG TAB PO SCH ×2 (09:33→21:00)
[2019-11-12 12:00] VITALS: BP 124/87
--- NOTE | 2019-11-12 12:30 | NUR ---
PATIENT ASSISTED WITH LUNCH. NO S/S OF DISTRESS NOTED.
[2019-11-12] MEDS: remdesivir 100 mg in NACL 0.9% 100 ML IV SCH (13:19)
--- NOTE | 2019-11-12 14:00 | NUR ---
PATIENT REMAINS STABLE. VS STABLE. NO S/S OF DISTRESS NOTED.
[2019-11-12 16:00] VITALS: BP 113/71
--- NOTE | 2019-11-12 16:00 | NUR ---
PATIENT REMAINS STABLE. O2 ON @ 2L NC. NO S/S OF DISTRESS NOTED. CALL LIGHT WITHIN REACH.
--- NOTE | 2019-11-12 16:22 | NUR ---
DC PLANNING 64 YRS OLD MALE PATIENT WAS ADMITT[place] [facility] [place] DX OF COVID POSITIVE INFECTION PT HAS A HX OF CVA DLD, DM HT, AND NEUROPATHY. STARTED ON HEPARIN DRIP , BLOOD AND URINE CULTURE PENDING. CONSULTED WITH MODEL BUILDER, MELVI AND SHARI. THEY ALL RECOMMENDED MONITORING TROPONIN AND DC HEPARIN DRIP . CONTINUE COVID CARE CURRENTLY ON DECADRON AND REMDESIVIR. DISCONTINUE IV ABX DC PLAN TO GO BACK TO [facility] WHEN STABLE. CM TO FOLLOW. Addendum: 11/13/19 at 0942 by Nadia Kasper CM FAXED [facility], FOLLOWED UP WITH KATHI WAITING ON A ROOM NUMBER. CONTACTED LAUREANO AT [facility] TO SET UP WILL CALL TRANSPORTATION. Addendum: 11/13/19 at 1036 by Nadia Kasper CM KATHI PROVIDED ROOM NUMBER 40 B FOR PATIENT TO RETURN TO UNDER DR. VIVIAN BYRNE. Addendum: 11/13/19 at 1037 by Nadia Kasper CM FAXED [facility] DISCHARGE NEEDS REQUEST FORM AND FOLLOWED UP WITH AURY FROM [facility] FOR TRANSPORTATION AUTH. WAITING ON AUTH FOR TRANSPORTATION Addendum: 11/13/19 at 1053 by Nadia Kasper CM AUTH FOR TRANSPORTATION PROVIDED BY AURY FROM [facility] [id number]. FAXED INFORMATION TO [facility] Addendum: 11/13/19 at 1058 by Nadia Kasper CM REACHED OUT TO KATHI FROM [facility] TO ASK IF HE HAD A POINT OF CONTACT FOR THE PATIENT. SHE PROVIDED PATIENTS SISTERS RUDDY TOUSSAINT [phone] Addendum: 11/13/19 at 1126 by Nadia Kasper CM CONTACTED LAUREANO AT [facility] IS SET UP FOR 12:30 EXPLOSIVE OPERATOR SUPERVISOR TIME. NOTIFIED QUYNH RAMIREZ AND KATHI AT [facility]
--- NOTE | 2019-11-12 19:30 | NUR ---
REPORT GIVEN TO NIGHT NURSE. PATIENT IN STABLE CONDITION.
--- NOTE | 2019-11-12 19:35 | NUR ---
Lety ECEIVED PT CORRIE SLADE RN PT DANISH SPEAKER BUT NON VERBAL AT THIS TIME HX CVA RT SIDE WEAKNESS ; ON TELEMETRY SR BBB REPOSITIONED IV ON RT HAND INFUSING WELL , REPOSITIONED INITIAL ASSESSMENT DONE
[2019-11-12 20:00] VITALS: BP 110/72
--- NOTE | 2019-11-12 20:37 | NUR ---
RECEIVED REPORT FROM AM SHIFT. PT SEEN AND ASSESSED. PT IS IN NO APPARENT RESPIRATORY DISTRESS AT THIS TIME. PT ON 3L NASAL CANNULA WITH SPO2 OF 92% AND RALES BS ON AUSCULTATION. PRN TX NOT INDICATED AT THIS TIME. PT WAS INFORMED TO CALL FOR PRN TX IF EXPERIENCING SOB. WILL CONTINUE TO MONITOR PT.
[2019-11-12] MEDS: ATORVASTATIN 20 MG TAB PO SCH (21:00)
[2019-11-12] MEDS: ENOXAPARIN 100 MG/ML SYR SUBQ SCH (21:00)
--- NOTE | 2019-11-12 21:45 | NUR ---
BLOOD SUGAR TEST 240 WAS VOCOVERAGE WITH 4 UNIST SUBQ HUMALOG FOLLOW PROTOCOL
[2019-11-13] VITALS: BP 121/78
--- NOTE | 2019-11-13 | NUR ---
PT REPOSITIONED SR NOT DISTRESS NOTED , PT GETTING SLEEP
[2019-11-13 04:00] VITALS: BP 129/60
--- NOTE | 2019-11-13 04:00 | NUR ---
SPONGE BATH GIVEN LINEN CHANGED PT COOPERATIVE WHEN WE TURN, ON TELEMETRY SR NOT DISTRESS NO;PHILL
[2019-11-13] MEDS: BLOOD GLUCOSE MONITORING 1 DEV DEV FS SCH ×2 (06:16→11:40)
[2019-11-13] MEDS: NACL 0.9% 1,000 ML IV SCH (06:19)
[2019-11-13] MEDS: INSULIN LISPRO SLIDING SCALE 100 UNITS/ML VIAL SUBQ PRN ×2 (06:19→12:54)
[2019-11-13 06:22] LABS: HEMATOCRIT 42.6 % (36-52); HEMOGLOBIN 14.2 g/dL (12.0-18.0); MEAN CORPUSCULAR HEMOGLOBIN 29 pg (27-31); MEAN CORPUSCULAR HGB CONC 33 g/dL (33-37); MEAN CORPUSCULAR VOLUME 86.8 fL (80-94); PLATELET COUNT (AUTO) 165 K/uL (140-450); RED BLOOD CELL COUNT(AUTO) 4.91 MIL/uL (4.20-6.10); RED CELL DISTRIBUTION WIDTH 14.7 % (11.6-13.7); WHITE BLOOD COUNT (AUTO) 7.7 K/uL (4.8-10.8)
--- NOTE | 2019-11-13 06:39 | NUR ---
BLOOD SUGAR TEST 203 COVERAGE WITH 4 UNITS HUMALOG FOLLOW LPROTOCOL
--- NOTE | 2019-11-13 06:40 | NUR ---
PT WILL BE ENDORSED TO DAY SHIFT NURSE FOR CONTINUE OF CARE
[2019-11-13 06:55] LABS: ANION GAP 14.4 (8-16); POTASSIUM 3.4 mmol/L (3.5-5.1)
[2019-11-13 07:06] LABS: ALBUMIN 2.6 g/dL (3.4-5.0); BILIRUBIN,DIRECT 0.1 mg/dL (0.0-0.3); TOTAL BILIRUBIN 0.5 mg/dL (0.0-1.0)
--- NOTE | 2019-11-13 07:15 | NUR ---
RECEIVED PATIENT FROM CLINICAL SERVICES CONSULTANT NURSE FOR CONTINUITY OF CARE. PATIENT IS ASLEEP. RESPIRATIONS EVEN AND UNLABORED, ROOM AIR. VISIBLE CHEST RISE AND FALL NOTED. ON TELE MONITORING. SKIN WARM, DRY, AND INTACT. IV IN THE R HAND G22, RUNNING NS AT 100 ML/HR. PATIENT IS INCONTINENT. BEDBOUND. FALL PRECAUTION. DROPLET PRECAUTION FOR COVID-19. SAFETY MEASURES IN PLACE. BED IN LOW POSITION. CALL LIGHT IS WITHIN REACH. WILL CONTINUE TO MONITOR.
[2019-11-13 07:17] LABS: EOSINOPHILS # (AUTO) 0.1 K/uL (0-0.4); MONOCYTES # (AUTO) 0.9 K/uL (0.8-1.0); NEUTROPHILS # (AUTO) 6.2 K/uL (1.8-7.7)
[2019-11-13 08:00] VITALS: BP 142/82
[2019-11-13] MEDS ORDERED: DEC4 PO (08:22)
[2019-11-13] MEDS ORDERED: FLUoxetine 10 MG CAP PO SCH (09:00)
[2019-11-13] MEDS: metFORMIN 500 MG TAB PO SCH (09:02)
[2019-11-13] MEDS: DOCUSATE SODIUM 100 MG GELCAP PO SCH (09:03)
[2019-11-13] MEDS: ASCORBIC ACID 500 MG TAB PO SCH (09:03)
[2019-11-13] MEDS: VITAMIN D 400 IU TAB PO SCH (09:03)
[2019-11-13] MEDS: hydroCHLOROthiazide 25 MG TAB PO SCH (09:03)
[2019-11-13] MEDS: METOPROLOL 25 MG TAB PO SCH (09:03)
--- NOTE | 2019-11-13 09:03 | NUR ---
GIVEN MORNING MEDICATION PO, CRUSHED AND MIXED WITH APPLESAUCE. LOVENOX SUBQ IN THE RIGHT UPPER ARM. PLATELET IS 165. PATIENT TOLERATED WELL. MEDICATION EDUCATION GIVEN. OFFERED TO DRINK GLUCERNA SUPPLEMENT DIET, PATIENT WAS ABLE TO DRINK 3 SWALLOWS. BED IN LOW POSITION. CALL LIGHT IS WITHIN REACH. WILL CONTINUE TO MONITOR
[2019-11-13] MEDS: ENOXAPARIN 100 MG/ML SYR SUBQ SCH (09:04)
[2019-11-13] MEDS: ZINC SULF 220 MG CAP PO SCH (09:04)
[2019-11-13] MEDS: DEXAMETHASONE 4 MG TAB PO SCH (09:11)
[2019-11-13] MEDS: lisinopriL 20 MG TAB PO SCH (09:11)
[2019-11-13] MEDS: FLUoxetine 10 MG CAP PO SCH (09:15)
[2019-11-13 10:38] LABS: BASOPHILS % (MANUAL) 0 % (0-2); EOSINOPHILS % (MANUAL) 0 % (0-4); LYMPHOCYTES % (MANUAL) 8 % (20-46); METAMYELOCYTES % 1 % (0-0); MONOCYTES % (MANUAL) 8 % (5-12); MYELOCYTES % 2 % (0-0)
--- NOTE | 2019-11-13 10:44 | NUR ---
SPOKE TO DR. BYRNE REGARDING ORDERED PROZAC OF 5MG. PHARMACY ONLY HAS 10 MG AND IT'S A CAPSULE. DR. BYRNE STATED TO CHANGE IT TO 10MG, 1 CAPSULE NOW INSTEAD OF ORIGINAL ORDER OF 5MG. PHARMACIST PREMA VILLALBA
[2019-11-13] MEDS ORDERED: POTASSIUM CHLORIDE 20% 40 MEQ/15 ML UDC PO SCH (11:00)
--- NOTE | 2019-11-13 11:22 | NUR ---
GIVEN POTASSIUM 40 MEQ FOR K LEVEL OF 3.4 PER MD ORDER. MIXED WITH APPLESAUCE. PATIENT TOLERATED WELL. FINGERSTICK BLOOD SUGAR: 224. WILL GIVE INSULIN COVERAGE. PATIENT TOLERATED WELL. WILL CONTINUE TO MONITOR.
[2019-11-13 11:24] VITALS: BP 123/70
--- NOTE | 2019-11-13 11:40 | NUR ---
RECEIVED A CALL FROM GREETING CARD WRITER. PATIENT IS GOING BACK TO [facility] AT 1230, [facility].
--- NOTE | 2019-11-13 11:53 | NUR ---
GIVEN REPORT TO STEVE RN AT [facility] FOR PATIENT'S TRANSFER. MADE AWARE 1230 [facility]. INFORMED THAT PATIENT WILL HAVE DEXAMETHASONE PO ORDER AND DR. BYRNE WILL BE THE RECEIVING DOCTOR. INFORMED THAT PATIENT IS + FOR COVID-19. NO FURTHER QUESTIONS ASKED.
[2019-11-13 12:00] VITALS: BP 123/70
--- NOTE | 2019-11-13 12:54 | NUR ---
4 UNITS HUMALOG GIVEN FOR BS OF 224. LUNCH TRAY AT BEDSIDE. HAND FLATWORK FINISHER WILL ASSIST MARGIE Addendum: 11/13/19 at 1255 by Princess Sushila Rincon RN WILL ASSIST PATIENT TO EAT.
--- NOTE | 2019-11-13 14:01 | NUR ---
[facility] AT BEDSIDE. REMOVED IV SITE. MINIMAL BLEEDING. SECURED WITH 2X2 AND TAPED. DISCHARGE PACKETS GIVEN TO [facility] PERSONNEL. PATIENT IS IN STABLE CONDITION
--- NOTE | 2019-11-13 14:10 | NUR ---
DISCHARGED PATIENT VIA [facility] WITH [facility] PERSONNEL. PATIENT IS ON 2L O2 VIA NC. NO SIGNS OF DISTRESS NOTED. PATIENT IS IN STABLE CONDITION
[2019-11-14] MEDS ORDERED: FLUoxetine 10 MG CAP PO SCH (09:00)
== END 2019-11-13 14:10 | DRG 177 ==
LOC: MED 20:22 → MTU 23:24 → EEVIPCON 23:24 → MTU 11-09 02:00
PROVIDERS: ADMIT General Practice; ATTEND General Practice
DX: U07.1 COVID-19 (principal); E43 Unspecified severe protein-calorie malnutrition; J12.89 Other viral pneumonia; J96.01 Acute respiratory failure with hypoxia; I21.A1 Myocardial infarction type 2; K85.90 Acute pancreatitis without necrosis or infection, unspecified; I69.354 Hemiplegia and hemiparesis following cerebral infarction affecting left non-dominant side; E87.1 Hypo-osmolality and hyponatremia; Z68.37 Body mass index [BMI] 37.0-37.9, adult; E83.42 Hypomagnesemia; E87.6 Hypokalemia; E78.5 Hyperlipidemia, unspecified; F32.9 Major depressive disorder, single episode, unspecified; E11.40 Type 2 diabetes mellitus with diabetic neuropathy, unspecified; I10 Essential (primary) hypertension; K59.00 Constipation, unspecified; E66.9 Obesity, unspecified; D69.6 Thrombocytopenia, unspecified; Z88.8 Allergy status to other drugs, medicaments and biological substances
CPT/HCPCS: 36415; 36600; 71045; 76700; 80048; 80053; 80076; 80305; 81001; 82150; 82550; 82728; 82803; 82948; 83036; 83605; 83615; 83690; 83735; 83880; 84100; 84439; 84443; 84484; 85025; 85379; 85384; 85610; 85651; 85730; 86140; 86886; 86900; 86901; 87040; 87081; 87086; 93005; 96365; 96366; 96367; 99291; J0456; J0696; J1644; J1650; J1815; J3475; J7030; J7060; Q0092; U0003-CS